=== PATIENT | male | born 1945 | race Two or more races ===

== ENCOUNTER 2017-05-20 06:53 | Day surgery (SDC) | payer MEDICARE, OTHER ==
[~2017-05-20] VITALS: Ht 175.3 cm; Wt 68.0 kg
[2017-05-20] MEDS ORDERED: METO25TA5 PO (07:33)
[2017-05-20] MEDS ORDERED: MAGN400T5 OR (07:33)
[2017-05-20] MEDS ORDERED: PRAV20TA3 PO (07:33)
[2017-05-20] MEDS ORDERED: VANCOMYCIN 1GM/250ML D5W 250 ML IV ONE (08:00)
[2017-05-20] MEDS ORDERED: BACITRACIN IR ONE (08:00)
[2017-05-20] MEDS ORDERED: LIDOCAINE 2%HCL (LOCAL ANESTH.) INJ 20ML MDV ONE ×2 (08:00→09:30)
[2017-05-20] MEDS ORDERED: fentaNYL CITRATE 100 MCG/2 ML VL ONE (08:14)
[2017-05-20] MEDS ORDERED: MIDAZOLAM HCL 1MG/1ML-2 ML VIAL ONE (08:14)
[2017-05-20] MEDS ORDERED: BACITRACIN INJ 50000 UNIT VIAL ONE (08:15)
[2017-05-20] MEDS ORDERED: ceFAZolin 1GM/50ML D5W 100 ML IV ONE (09:00)
[2017-05-20] MEDS ORDERED: VANCOMYCIN HCL 1000 MG VL ONE (09:17)
[2017-05-20] MEDS ORDERED: DOXYCYCLINE 100 MG TAB/CAP PO ONE (11:00)
== END 2017-05-20 13:25 | disposition home or self-care (01) ==
LOC: CATH 06:53
PROVIDERS: ATTEND Specialist
DX: R00.2 Palpitations (principal)
CPT/HCPCS: 33282; 93620; J0690; J2250